=== PATIENT | male | born 1990 | race Caucasian/White ===

== ENCOUNTER 2019-12-09 12:00 | Outpatient (CLI) | payer OTHER, SELFPAY | END 2019-12-09 12:01 | disposition home or self-care (01) | LOC: SLEEP 12-10 16:39 | PROVIDERS: Family Provider Nurse Practitioner Family; Visit Provider Family Medicine | DX: G47.33 Obstructive sleep apnea (adult) (pediatric) (principal); G47.00 Insomnia, unspecified; R40.0 Somnolence; R06.83 Snoring; G43.909 Migraine, unspecified, not intractable, without status migrainosus | CPT/HCPCS: G0399 ==